=== PATIENT | male | born 1955 | race Caucasian/White ===

== ENCOUNTER 2018-01-24 06:49 | Emergency (ER) | payer BC ==
[2018-01-24] MEDS: ONDANSETRON PF 4 MG/2 ML VIAL. IV (07:33)
[2018-01-24] MEDS: IV NORMAL SALINE 1000ML BAG 1,000 ML IV ×2 (07:34→08:42)
[2018-01-24] MEDS: fentaNYL PF VIAL 100 MCG/2 ML VIAL IV (07:34)
[2018-01-24 07:47] LABS: ADD MAN DIFF? NO
[2018-01-24 08:00] LABS: ANION GAP 12 (6-14); BLOOD UREA NITROGEN 22 mg/dL (8-26); BUN/CREATININE RATIO 15 (6-20); CALCIUM 9.4 mg/dL (8.5-10.1); CARBON DIOXIDE 24 mmol/L (21-32); CHLORIDE 105 mmol/L (98-107); CREATININE 1.5 mg/dL (0.7-1.3); GFR 47.1; GLUCOSE 130 mg/dL (70-99); POTASSIUM 4.2 mmol/L (3.5-5.1); SODIUM 141 mmol/L (136-145)
[2018-01-24 08:04] LABS: BASO % 1 % (0-3); EOS # 0.1 x10^3/uL (0.0-0.7); EOS % 1 % (0-3); HEMATOCRIT 41.3 % (39.0-53.0); HEMOGLOBIN 14.4 g/dL (13.0-17.5); LYMPH # 1.3 x10^3/uL (1.0-4.8); LYMPH % 15 % (24-48); MEAN CORPUSCULAR HEMOGLOBIN 32 pg (25-35); MEAN CORPUSCULAR HGB CONC 35 g/dL (31-37); MEAN CORPUSCULAR VOLUME 92 fL (79-100); MONO # 0.5 x10^3/uL (0.0-1.1); MONO % 6 % (0-9); NEUT # 6.6 x10^3uL (1.8-7.7); NEUT % 78 % (31-73); PLATELET COUNT 201 x10^3/uL (140-400); RED CELL DISTRIBUTION WIDTH 12.9 % (11.5-14.5); WHITE BLOOD COUNT 8.5 x10^3/uL (4.0-11.0)
[2018-01-24 08:16] LABS: ALBUMIN 4.3 g/dL (3.4-5.0); ALBUMIN/GLOBULIN RATIO 1.4 (1.0-1.7); ALK PHOS 62 U/L (46-116); ALT (SGPT) 34 U/L (16-63); AST (SGOT) 19 U/L (15-37); TOTAL BILIRUBIN 0.7 mg/dL (0.2-1.0); TOTAL PROTEIN 7.4 g/dL (6.4-8.2)
[2018-01-24] MEDS: TAMSULOSIN 0.4 MG CAP.ER.24H. PO (08:42)
[2018-01-24 09:05] LABS: BILIRUBIN,URINE NEGATIVE (NEG); CLARITY,URINE CLEAR; COLOR,URINE YELLOW; GLUCOSE,URINE NEGATIVE (NEG); NITRITE,URINE NEGATIVE (NEG); PH,URINE 6.5; PROTEIN,URINE NEGATIVE (NEG-TRACE); UROBILINOGEN,URINE 0.2 mg/dL (0.2 mg/dL)
[2018-01-24 09:19] LABS: BACTERIA,URINE FEW /HPF (0-FEW)
[2018-01-24 09:20] LABS: SQUAMOUS EPITHELIAL CELL,UR FEW /LPF
== END 2018-01-24 10:41 | disposition home or self-care (01) ==
LOC: ER 06:49
DX: N13.2 Hydronephrosis with renal and ureteral calculous obstruction (principal); E86.0 Dehydration; N28.9 Disorder of kidney and ureter, unspecified; R91.1 Solitary pulmonary nodule; E78.00 Pure hypercholesterolemia, unspecified; I10 Essential (primary) hypertension
CPT/HCPCS: 36415; 74176; 80053; 81001; 85025; 96361; 96374; 96375; 99285; J2405; J3010; J7030

== ENCOUNTER → 2019-08-21 | Day surgery (SDC) | payer MEDICARE, OTHER ==
[~2019-08-21] MED LIST: ATOR20TA58 PO; CIPR250T30 PO; HYDR-3164 PO; IV RINGERS,LACTATED 1000ML 1,000 ML IV SCH; LIDOCAINE 2% PF 5 ML VIAL. ONE; LOSA100T14 PO; ONDA4TAB10 SL; PROPOFOL 20 ML IV ONE; TAMS0.4C97 PO
[2019-08-21 10:16] VITALS: BP 97/54
--- NOTE | 2019-08-21 11:07 | HP ---
ADMIT DATE: 08/21/2019 REFERRING PHYSICIAN: Darrius Capps MD HISTORY OF PRESENT ILLNESS: A 64-year-old male whose past medical history is significant for hypertension and hyperlipidemia, is seen in further evaluation for colonoscopy. Last exam was done approximately a decade ago. He does have a family history of colon cancer with a sister, who was diagnosed at the age of 53. Denies any change in bowel habits. Denies any diarrhea or constipation, otherwise without additional complaints. PAST MEDICAL HISTORY: Hypertension, hyperlipidemia, and diverticulosis. ALLERGIES: None. MEDICATIONS: Include atorvastatin and losartan. FAMILY AND SOCIAL HISTORY: Significant for colon cancer with his sister. He is . Social drinker, nonsmoker. PAST SURGICAL HISTORY: Hernia repair, variceal repair. REVIEW OF SYSTEMS: Per records. PHYSICAL EXAMINATION: GENERAL: Reveals a well-nourished, well-developed male, who is alert, cooperative, in no acute distress. VITAL SIGNS: Temperature is 98.5, pulse 87, respiratory rate is 18. LUNGS: Clear. CARDIOVASCULAR: Reveals an S1, S2 without S3, S4 or appreciable murmur. ABDOMEN: Reveals a soft abdomen, normal bowel sounds, without appreciable hepatosplenomegaly. EXTREMITIES: Reveals no cyanosis, clubbing or edema. IMPRESSION: Colorectal screening is warranted at this time. Risks and benefits of procedure, including risk of hemorrhage and perforation for operation have been discussed. The patient is willing to proceed. YANG EMLVIN MD DR: TAHIR/oscar JOB#: [id number] / [id number]
== END ==
LOC: ENDOS 08:17
PROVIDERS: ATTEND Internal Medicine Gastroenterology
DX: Z12.11 Encounter for screening for malignant neoplasm of colon (principal); K57.30 Diverticulosis of large intestine without perforation or abscess without bleeding; K64.0 First degree hemorrhoids; E78.5 Hyperlipidemia, unspecified; I10 Essential (primary) hypertension; Z80.0 Family history of malignant neoplasm of digestive organs
CPT/HCPCS: G0105; J2001; J2704; 45378